=== PATIENT | male | born 1940 | race Caucasian/White ===

== ENCOUNTER 2019-03-07 12:01 | Emergency (ER) | payer MEDICARE ==
[2019-03-07] MEDS: HYDROmorphone 2 MG/ML SDV IM ONE ×2 (12:35→13:51)
[2019-03-07] MEDS ORDERED: HYDROmorphone 2 MG/ML SDV IM ONE (13:52)
--- NOTE | 2019-03-07 14:03 | ER ---
REASON FOR EMERGENCY ROOM VISIT: Suspected right hip fracture. HISTORY: This 78-year-old retired man who lives alone, fell off the steps while leaving his house, landing on his right hip, sustaining severe pain and obvious deformity of his right hip. He was brought in by ambulance after having his lower extremities immobilized with a vacuum splint. Complaining of pain in his upper thigh and right hip area. PAST MEDICAL HISTORY: Significant for 3 past operations for what sounds like peptic ulcer disease. The last one being approximately 40 years ago. Other than that, he has had no hospitalizations. MEDICATIONS: None. ALLERGIES: NONE TO MEDICATIONS. SOCIAL HISTORY: He is retired and lives alone. He has never been . He has no children. He is a smoker and drinks occasionally. He has 1 sister, who is and his mother and father are both from old age. REVIEW OF SYSTEMS: Pertinent positives and negatives as listed in the HPI. PHYSICAL EXAMINATION: GENERAL: A thin, alert, elderly gentleman, in no acute distress. He does have some pain in his right hip area. VITAL SIGNS: He is afebrile. Heart rate 74, blood pressure 146/55, respiratory rate 16, O2 sats 100% on room air. HEENT: No scleral icterus or are conjunctival injection. Oropharynx is normal. NECK: Supple and nontender. CHEST: Clear to auscultation. CARDIAC: Regular rate without murmur. ABDOMEN: Soft. EXTREMITIES: His right leg is foreshortened and externally rotated. The exam is somewhat limited by the application of the vacuum splint, but he did have some palpable swelling and tenderness overlying the greater trochanter area and the right hip. Distal pulses are intact (tibialis posterior). Sensation is intact distally and there is normal capillary refill. EMERGENCY ROOM COURSE: The splint was maintained to maintain immobilization. PA and lateral x-rays were obtained of his right hip area and it shows an acute intertrochanteric fracture of the right femur. With these findings in mind, I spoke with the orthopedic surgeon at [facility] in [place], Dr. Thomas, as well as the hospitalist, Dr. Cesar. They agreed with his plan that he should be transferred there. Dr. Thomas will tentatively plan surgery for the morning. They accepted him in transfer. I informed the patient and discussed options and he understands and agrees with this plan. He will be transferred by be a BLS ambulance to [place]. We did draw a CBC and BMP, the results of which are pending at the time of this dictation. DISCHARGE DIAGNOSIS: Right intertrochanteric hip fracture COOPER/MODJanett /[id number] MTDD
--- NOTE | 2019-03-08 10:13 | CR ---
Date of Service: 03/07/19 Clinical Angelo: trauma RIGHT FEMUR: There is a comminuted, impacted, intertrochanteric fracture on the right. No other acute abnormalities. [id number] [facility]
--- NOTE | 2019-03-08 10:15 | CR ---
Date of Service: 03/07/19 Clinical Data: trauma RIGHT HIP: No priors. There is an impacted, comminuted intertrochanteric fracture. No other acute abnormalities. [id number] [facility]
== END 2019-03-07 14:23 ==
LOC: LB.ED 12:01
DX: S72.141A Displaced intertrochanteric fracture of right femur, initial encounter for closed fracture (principal); F17.200 Nicotine dependence, unspecified, uncomplicated; W10.9XXA Fall (on) (from) unspecified stairs and steps, initial encounter
CPT/HCPCS: 36415; 73501; 73552; 80048; 85025; 96372; 99284; J1170; A0425; A0429

== ENCOUNTER 2019-03-11 14:36 | Inpatient (IN) | payer MEDICARE ==
[2019-03-12] MEDS ORDERED: Acetaminophen 325 MG Tab ONE (18:46)
[2019-03-12] MEDS ORDERED: Ondansetron 4 MG Tab.DIS ONE (18:47)
[2019-03-13] MEDS ORDERED: Acetaminophen 325 MG Tab ONE (08:21)
[2019-03-13] MEDS: Tuberculin, PPD 5 Units/0.1 ML 1 ML MDV IDERM ONE ×2 (08:37→19:55)
[2019-03-13] MEDS ORDERED: Ondansetron 4 MG Tab.DIS PO PRN (10:15)
[2019-03-13] MEDS: Enoxaparin 40 MG/0.4 ML Syringe SUBCUT SCH (10:26)
[2019-03-13] MEDS: Ferrous Sulfate 325 MG Tab PO SCH ×2 (10:27→20:08)
--- NOTE | 2019-03-13 11:37 | PCM.HP.2 ---
H&P History of Present Illness - General Date of Service: 03/12/19 Admit Problem/Dx: Admission Diagnosis/Problem Admission Diagnosis/Problem Weakness Source of Information: Patient History Limitations: Reports: No Limitations - History of Present Illness Initial Comments - Free Text/Narative: This is a 78yo M here for rehabilitation after post surgical repair of his right hip. He denies any concerns and feels that his pain is controlled. He does have increasing pain with movement. He denies any shortness of breath, no chest pain, no fever or chills. Location: Reports: Lower Extremity, Right Associated Symptoms: Reports: No Other Symptoms Right Leg Pain Score (Numeric/FACES): 3 - Related Data Allergies/Adverse Reactions: Allergies Allergy/AdvReac Type Severity Reaction Status Date / Time No Known Allergies Allergy Verified 03/07/19 13:32 Home Medications: Home Meds Acetaminophen 500 mg PO Q6H PRN 03/12/19 [History] Enoxaparin [Lovenox] 40 mg SUBCUT DAILY 03/12/19 [History] Ferrous Sulfate 325 mg PO BID 03/12/19 [History] Ondansetron [Zofran ODT] 4 mg PO Q8H PRN 03/12/19 [History] Polyethylene Glycol 3350 [Miralax] 17 gm PO DAILY PRN 03/12/19 [History] Sennosides/Docusate Sodium [Senna-Docusate Sodium Tablet] 1 each PO BID PRN [History] oxyCODONE 5 mg PO Q6H PRN 03/12/19 [History] Past Medical History - Past Health History Medical/Surgical History: Denies Medical/Surgical History Cardiovascular History: Reports: Other (See Below) Other Cardiovascular History: tachycardia Gastrointestinal History: Reports: None - Past Surgical History GI Surgical History: Reports: Other (See Below) Other GI Surgeries/Procedures: hx ulcer surgery Social & Family History - Tobacco Use Smoking Status *Q: Current Every Day Smoker Years of Tobacco use: 65 Packs/Tins Daily: 0.5 Used Tobacco, but Quit: No Month/Year Tobacco Last Used: 02/28 Second Hand Smoke Exposure: Yes - Caffeine Use Caffeine Use: Reports: Coffee, Tea - Recreational Drug Use Recreational Drug Use: No H&P Review of Systems - Review of Systems: Review Of Systems: ROS reveals no pertinent complaints other than HPI. Exam - Exam Exam: See Below - Vital Signs Vital Signs: Last Vital Signs Temp 37.3 C 03/13/19 01:17 Pulse 64 03/13/19 01:17 Resp 18 03/13/19 01:17 BP 163/57 H 03/13/19 01:17 Pulse Ox 97 03/13/19 01:17 Weight: 60.237 kg - Exam General: Alert, Oriented, Cooperative HEENT: PERRLA, Conjunctiva Clear, EACs Clear, EOMI Neck: Supple, Trachea Midline Lungs: Clear to Auscultation, Normal Respiratory Effort Cardiovascular: Regular Rate, Regular Rhythm GI/Abdominal Exam: Normal Bowel Sounds, Soft, Non-Tender Back Exam: Normal Inspection Extremities: Normal Inspection, Normal Range of Motion Peripheral Pulses: 2+: Dorsalis Pedis (L), Dorsalis Pedis (R) Skin: Warm, Dry, Intact - Patient Data Yo Results Last 24 hrs: Microbiology 03/12/19 17:20 MRSA Surveillance Culture - Final Nares, Right NO MRSA ISOLATED - Problem List (1) Status post hip surgery SNOMED Code(s): 298211884, [id number] ICD Code: Z98.890 - OTHER SPECIFIED POSTPROCEDURAL STATES Status: Acute Priority: High Current Visit: Yes Problem List Initiated/Reviewed/Updated: Yes Orders Last 24hrs: Active Orders 24 hr Category Date Time Status Patient Status [ADT] Routine ADT 03/12/19 15:48 Active Consult to Sales Service Professional [CONS] Routine Cons 03/12/19 15:48 Active Consult to Home Health [CONS] Routine Cons 03/12/19 15:48 Active Consult to Infection Prevention [CONS] Routine Cons 03/12/19 15:48 Active Consult to Wound Care Services [CONS] Routine Cons 03/12/19 15:48 Active OT Evaluation and Treatment [CONS] Routine Cons 03/12/19 15:48 Active PT Evaluation and Treatment [CONS] Routine Cons 03/12/19 15:48 Active Regular Diet [DIET] Diet 03/13/19 Breakfast Ordered Acetaminophen [Tylenol Extra Strength] Med 03/13/19 10:13 Active 500 mg PO Q6H PRN Docusate Sodium/Sennosides [Senna Plus] Med 03/13/19 10:16 Active 1 tab PO BID PRN Enoxaparin [Lovenox] Med 03/13/19 08:00 Active 40 mg SUBCUT DAILY Ferrous Sulfate Med 03/13/19 08:00 Active 325 mg PO BID Ondansetron [Zofran ODT] Med 03/13/19 10:15 Active 4 mg PO Q8H PRN Medication Orders Acetaminophen (Tylenol Extra Strength) 500 mg PO Q6H PRN PRN Reason: MILD PAIN Enoxaparin Sodium (Lovenox) 40 mg SUBCUT DAILY [facility] Stop: 04/05/19 23:59 Last Admin: 03/13/19 10:26 Dose: 40 mg Ferrous Sulfate (Ferrous Sulfate) 325 mg PO BID [facility] Last Admin: 03/13/19 10:27 Dose: 325 mg Ondansetron HCl (Zofran Odt) 4 mg PO Q8H PRN PRN Reason: NAUSEA AND VOMITING Senna/Docusate Sodium (Senna Plus) 1 tab PO BID PRN PRN Reason: CONSTIPATION Assessment/Plan Comment:: Patient admitted for swing bed rehabilitation of the right hip. Patient appears to be healing well and has no issues or concerns. We will continue with PT/OT and pain control as needed. - Mortality Measure Prognosis:: Good
[2019-03-13] MEDS: Acetaminophen 500 MG Tab PO PRN (20:13)
[2019-03-14] MEDS: Acetaminophen 500 MG Tab PO PRN ×3 (04:49→20:03)
[2019-03-14] MEDS: Ferrous Sulfate 325 MG Tab PO SCH ×2 (09:51→20:03)
[2019-03-14] MEDS: Enoxaparin 40 MG/0.4 ML Syringe SUBCUT SCH (09:51)
[2019-03-15] MEDS: Ferrous Sulfate 325 MG Tab PO SCH ×2 (08:05→20:16)
[2019-03-15] MEDS: Enoxaparin 40 MG/0.4 ML Syringe SUBCUT SCH (08:06)
[2019-03-15] MEDS: Acetaminophen 500 MG Tab PO PRN ×2 (12:53→22:01)
[2019-03-16] MEDS: Enoxaparin 40 MG/0.4 ML Syringe SUBCUT SCH (08:23)
[2019-03-16] MEDS: Ferrous Sulfate 325 MG Tab PO SCH ×2 (08:23→19:54)
[2019-03-17] MEDS: Ferrous Sulfate 325 MG Tab PO SCH ×2 (07:40→20:00)
[2019-03-17] MEDS: Enoxaparin 40 MG/0.4 ML Syringe SUBCUT SCH (07:40)
[2019-03-17] MEDS: Acetaminophen 500 MG Tab PO PRN (07:42)
[2019-03-18] MEDS: Acetaminophen 500 MG Tab PO PRN ×2 (05:42→19:32)
[2019-03-18] MEDS: Enoxaparin 40 MG/0.4 ML Syringe SUBCUT SCH (08:21)
[2019-03-18] MEDS: Ferrous Sulfate 325 MG Tab PO SCH ×2 (08:21→19:32)
--- NOTE | 2019-03-18 08:41 | PCM.PN ---
- General Info Date of Service: 03/18/19 Functional Status: Reports: Pain Controlled, Tolerating Diet, Ambulating - Review of Systems General: Reports: No Symptoms HEENT: Reports: No Symptoms Pulmonary: Reports: No Symptoms Cardiovascular: Reports: No Symptoms Gastrointestinal: Reports: No Symptoms Genitourinary: Reports: No Symptoms Musculoskeletal: Reports: Leg Pain, Joint Pain Skin: Reports: No Symptoms Neurological: Reports: Weakness - Patient Data Vitals - Most Recent: Last Vital Signs Temp 36.4 C 03/17/19 07:55 Pulse 70 03/17/19 07:55 Resp 16 03/17/19 07:55 BP 127/59 L 03/17/19 07:55 Pulse Ox 99 03/17/19 07:55 Weight - Most Recent: 56.79 kg Med Orders - Current: Current Medications Acetaminophen (Tylenol Extra Strength) 500 mg PO Q6H PRN PRN Reason: MILD PAIN Last Admin: 03/18/19 05:42 Dose: 500 mg Enoxaparin Sodium (Lovenox) 40 mg SUBCUT DAILY [facility] Stop: 04/05/19 23:59 Last Admin: 03/18/19 08:21 Dose: 40 mg Ferrous Sulfate (Ferrous Sulfate) 325 mg PO BID [facility] Last Admin: 03/18/19 08:21 Dose: 325 mg Ondansetron HCl (Zofran Odt) 4 mg PO Q8H PRN PRN Reason: NAUSEA AND VOMITING Senna/Docusate Sodium (Senna Plus) 1 tab PO BID PRN PRN Reason: CONSTIPATION Discontinued Medications Acetaminophen (Tylenol) Confirm Administered Dose 650 mg .ROUTE .STK-MED ONE Stop: 03/12/19 18:47 Last Admin: 03/12/19 18:45 Dose: 650 mg Acetaminophen (Tylenol) Confirm Administered Dose 650 mg .ROUTE .STK-MED ONE Stop: 03/13/19 08:22 Last Admin: 03/13/19 08:20 Dose: 650 mg Ondansetron HCl (Zofran Odt) Confirm Administered Dose 4 mg .ROUTE .STK-MED ONE Stop: 03/12/19 18:48 Last Admin: 03/12/19 18:45 Dose: 4 mg Tuberculin PPD (Aplisol) 5 unit IDERM ONETIME ONE Stop: 03/12/19 15:49 Last Admin: 03/13/19 19:55 Dose: Not Given - Exam General: Alert, Oriented, Cooperative HEENT: Pupils Equal, Pupils Reactive, EOMI Neck: Supple Lungs: Clear to Auscultation, Normal Respiratory Effort Cardiovascular: Regular Rate, Regular Rhythm GI/Abdominal Exam: Normal Bowel Sounds Back Exam: Normal Inspection Extremities: Normal Inspection - Problem List & Annotations (1) Status post hip surgery SNOMED Code(s): 472425571, [id number] Code(s): Z98.890 - OTHER SPECIFIED POSTPROCEDURAL STATES Status: Acute Priority: High Current Visit: Yes - Problem List Review Problem List Initiated/Reviewed/Updated: Yes - Plan Plan:: Patient admitted for swing bed rehabilitation of the right hip. Patient appears to be healing well and has no issues or concerns. We will continue with PT/OT and pain control as needed. 03/18/19 Patient doing well. He has some pain with movement of the hip but improving with PT/OT. He denies any concerns and happy with his progress. Continue current management and f/u.
[2019-03-19] MEDS: Enoxaparin 40 MG/0.4 ML Syringe SUBCUT SCH (08:14)
[2019-03-19] MEDS: Ferrous Sulfate 325 MG Tab PO SCH ×2 (08:15→19:56)
[2019-03-19] MEDS: Acetaminophen 500 MG Tab PO PRN (12:01)
[2019-03-20] MEDS: Acetaminophen 500 MG Tab PO PRN ×2 (03:15→19:34)
[2019-03-20] MEDS: Enoxaparin 40 MG/0.4 ML Syringe SUBCUT SCH (07:34)
[2019-03-20] MEDS: Ferrous Sulfate 325 MG Tab PO SCH ×2 (07:34→19:34)
[2019-03-21] MEDS: Acetaminophen 500 MG Tab PO PRN ×2 (03:13→23:59)
[2019-03-21] MEDS: Enoxaparin 40 MG/0.4 ML Syringe SUBCUT SCH (07:17)
[2019-03-21] MEDS: Ferrous Sulfate 325 MG Tab PO SCH ×2 (07:17→20:07)
--- NOTE | 2019-03-21 12:47 | CR ---
DATE OF SERVICE: 03/20/2019 CLINICAL DATA: History R hip surgery. RIGHT HIP: Comparison is made to a prior exam dated 03/07/2019. The comminuted intertrochanteric fracture has been fixed internally with a compression screw and intramedullary mariel. No new abnormalities. [id number] [facility]
[2019-03-22] MEDS: Ferrous Sulfate 325 MG Tab PO SCH ×2 (08:00→21:02)
[2019-03-22] MEDS: Enoxaparin 40 MG/0.4 ML Syringe SUBCUT SCH (08:00)
[2019-03-22] MEDS: traMADol 50 MG Tab PO PRN ×2 (13:20→21:02)
[2019-03-23] MEDS: traMADol 50 MG Tab PO PRN (07:19)
[2019-03-23] MEDS: Ferrous Sulfate 325 MG Tab PO SCH ×2 (07:19→19:46)
[2019-03-23] MEDS: Enoxaparin 40 MG/0.4 ML Syringe SUBCUT SCH (07:19)
[2019-03-23] MEDS: Ibuprofen 600 MG Tab PO PRN (19:46)
[2019-03-24] MEDS: Ibuprofen 600 MG Tab PO PRN (07:23)
[2019-03-24] MEDS: Enoxaparin 40 MG/0.4 ML Syringe SUBCUT SCH (07:23)
[2019-03-24] MEDS: Ferrous Sulfate 325 MG Tab PO SCH (07:27)
== END 2019-03-24 10:45 | disposition home or self-care (01) | DRG 561 ==
LOC: LB.MS 03-12 15:11 → UNDOADMIN 03-12 15:11 → LB.MS 03-12 15:48
PROVIDERS: ADMIT Family Medicine; ATTEND Family Medicine
DX: S72.001D Fracture of unspecified part of neck of right femur, subsequent encounter for closed fracture with routine healing (principal); F17.200 Nicotine dependence, unspecified, uncomplicated; Z79.899 Other long term (current) drug therapy
CPT/HCPCS: 36415; 73502-RT; 85025; 86580; 97110-GP; 97116-GP; 97161-GP; 97165-GO; 97530-GP; 97535-GO; A9270-GY; J1650

== ENCOUNTER 2022-06-13 21:07 | Emergency (ER) | payer MEDICARE, SELFPAY ==
[2022-06-13] MEDS ORDERED: Morphine 2 MG/ML SYRINGE IVPUSH PRN (22:57)
[2022-06-14] MEDS: Morphine 4 MG/ML VIAL IVPUSH PRN ×4 (00:40→13:12)
[2022-06-14] MEDS ORDERED: Sodium Chloride 0.9% 1,000 ML IV SCH (08:15)
== END 2022-06-14 13:12 ==
LOC: LB.ED 21:07
DX: S72.002A Fracture of unspecified part of neck of left femur, initial encounter for closed fracture (principal); W01.0XXA Fall on same level from slipping, tripping and stumbling without subsequent striking against object, initial encounter; Y92.009 Unspecified place in unspecified non-institutional (private) residence as the place of occurrence of the external cause
CPT/HCPCS: 36415; 73501-LT; 73552-LT; 80048; 85027; 96361; 96374; 96376; 99285; 99285-25; A0425; A0429; J2270; J7030; U0002

== ENCOUNTER 2022-06-20 14:57 | Inpatient (IN) | payer MEDICARE ==
[2022-06-20] MEDS ORDERED: oxyCODONE 5 MG Tab PO PRN (15:11)
[2022-06-20] MEDS ORDERED: Tuberculin, PPD 5 Units/0.1 ML 1 ML MDV IDERM ONE (18:21)
[2022-06-20] MEDS ORDERED: Ketorolac 60 MG/2 ML SDV ONE (19:41)
[2022-06-20] MEDS: Acetaminophen 650 MG Tab.ER PO PRN (22:32)
[2022-06-21] MEDS: Nicotine 21 MG/24 Hr Patch TRDERM SCH (08:01)
[2022-06-21] MEDS: Cyanocobalamin (Vitamin B12) 1,000 MCG Tab PO SCH (08:02)
[2022-06-21] MEDS: Ferrous Sulfate 325 MG Tab PO SCH (08:02)
[2022-06-21] MEDS: Pantoprazole 40 MG Tab.CR PO SCH (08:02)
[2022-06-21] MEDS: Ascorbic Acid 500 MG Tab PO SCH (08:04)
[2022-06-21] MEDS: Enoxaparin 40 MG/0.4 ML Syringe SUBCUT SCH (08:04)
[2022-06-22] MEDS ORDERED: Zinc Oxide 20% Oint 56.7 GM Tube TOP PRN (01:08)
[2022-06-22] MEDS: Enoxaparin 40 MG/0.4 ML Syringe SUBCUT SCH (07:39)
[2022-06-22] MEDS: Ascorbic Acid 500 MG Tab PO SCH (07:40)
[2022-06-22] MEDS: Ferrous Sulfate 325 MG Tab PO SCH (07:40)
[2022-06-22] MEDS: Cyanocobalamin (Vitamin B12) 1,000 MCG Tab PO SCH (07:40)
[2022-06-22] MEDS: Pantoprazole 40 MG Tab.CR PO SCH (07:40)
[2022-06-22] MEDS: Nicotine 21 MG/24 Hr Patch TRDERM SCH (07:41)
[2022-06-22] MEDS: Acetaminophen 650 MG Tab.ER PO PRN ×2 (09:06→20:00)
[2022-06-22] MEDS: Nystatin Crm 30 GM Tube TOP SCH ×2 (11:55→19:59)
[2022-06-22] MEDS ORDERED: Nystatin Crm 30 GM Tube ONE (14:19)
[2022-06-23] MEDS: Acetaminophen 650 MG Tab.ER PO PRN (03:13)
[2022-06-23] MEDS: Ferrous Sulfate 325 MG Tab PO SCH (07:56)
[2022-06-23] MEDS: Nicotine 21 MG/24 Hr Patch TRDERM SCH (07:57)
[2022-06-23] MEDS: Enoxaparin 40 MG/0.4 ML Syringe SUBCUT SCH (07:58)
[2022-06-23] MEDS: Pantoprazole 40 MG Tab.CR PO SCH (07:59)
[2022-06-23] MEDS: Cyanocobalamin (Vitamin B12) 1,000 MCG Tab PO SCH (07:59)
[2022-06-23] MEDS: Ascorbic Acid 500 MG Tab PO SCH (08:00)
[2022-06-23] MEDS: Nystatin Crm 30 GM Tube TOP SCH ×2 (08:04→20:06)
[2022-06-24] MEDS ORDERED: Pantoprazole 40 MG Tab.CR ONE (07:52)
[2022-06-24] MEDS: Ascorbic Acid 500 MG Tab PO SCH (10:09)
[2022-06-24] MEDS: Cyanocobalamin (Vitamin B12) 1,000 MCG Tab PO SCH (10:09)
[2022-06-24] MEDS: Pantoprazole 40 MG Tab.CR PO SCH (10:10)
[2022-06-24] MEDS: Ferrous Sulfate 325 MG Tab PO SCH (10:10)
[2022-06-24] MEDS: Enoxaparin 40 MG/0.4 ML Syringe SUBCUT SCH (10:10)
[2022-06-24] MEDS: Nicotine 21 MG/24 Hr Patch TRDERM SCH (10:11)
[2022-06-24] MEDS: Nystatin Crm 30 GM Tube TOP SCH ×2 (10:12→20:21)
[2022-06-25] MEDS: Acetaminophen 650 MG Tab.ER PO PRN ×3 (05:03→20:26)
[2022-06-25] MEDS: Nicotine 21 MG/24 Hr Patch TRDERM SCH (08:11)
[2022-06-25] MEDS: Ferrous Sulfate 325 MG Tab PO SCH (08:13)
[2022-06-25] MEDS: Cyanocobalamin (Vitamin B12) 1,000 MCG Tab PO SCH (08:13)
[2022-06-25] MEDS: Ascorbic Acid 500 MG Tab PO SCH (08:13)
[2022-06-25] MEDS: Enoxaparin 40 MG/0.4 ML Syringe SUBCUT SCH (08:13)
[2022-06-25] MEDS: Pantoprazole 40 MG Tab.CR PO SCH (08:13)
[2022-06-25] MEDS: Nystatin Crm 30 GM Tube TOP SCH ×2 (08:13→20:18)
[2022-06-26] MEDS: Nicotine 21 MG/24 Hr Patch TRDERM SCH (07:59)
[2022-06-26] MEDS: Nystatin Crm 30 GM Tube TOP SCH ×2 (08:00→20:55)
[2022-06-26] MEDS: Enoxaparin 40 MG/0.4 ML Syringe SUBCUT SCH (08:00)
[2022-06-26] MEDS: Ascorbic Acid 500 MG Tab PO SCH (08:00)
[2022-06-26] MEDS: Cyanocobalamin (Vitamin B12) 1,000 MCG Tab PO SCH (08:00)
[2022-06-26] MEDS: Ferrous Sulfate 325 MG Tab PO SCH (08:00)
[2022-06-26] MEDS: Pantoprazole 40 MG Tab.CR PO SCH (08:00)
[2022-06-27] MEDS: Nystatin Crm 30 GM Tube TOP SCH ×2 (07:39→19:48)
[2022-06-27] MEDS: Cyanocobalamin (Vitamin B12) 1,000 MCG Tab PO SCH (07:40)
[2022-06-27] MEDS: Enoxaparin 40 MG/0.4 ML Syringe SUBCUT SCH (07:40)
[2022-06-27] MEDS: Ferrous Sulfate 325 MG Tab PO SCH (07:40)
[2022-06-27] MEDS: Acetaminophen 650 MG Tab.ER PO PRN ×2 (07:40→13:53)
[2022-06-27] MEDS: Ascorbic Acid 500 MG Tab PO SCH (07:40)
[2022-06-27] MEDS: Pantoprazole 40 MG Tab.CR PO SCH (07:40)
[2022-06-27] MEDS: Nicotine 21 MG/24 Hr Patch TRDERM SCH (07:40)
[2022-06-27] MEDS: Calcium Carbonate 500 MG Tab.Chew PO PRN (19:48)
[2022-06-28] MEDS: Cyanocobalamin (Vitamin B12) 1,000 MCG Tab PO SCH (08:11)
[2022-06-28] MEDS: Pantoprazole 40 MG Tab.CR PO SCH (08:11)
[2022-06-28] MEDS: Ferrous Sulfate 325 MG Tab PO SCH (08:11)
[2022-06-28] MEDS: Ascorbic Acid 500 MG Tab PO SCH (08:11)
[2022-06-28] MEDS: Nicotine 21 MG/24 Hr Patch TRDERM SCH (08:12)
[2022-06-28] MEDS: Nystatin Crm 30 GM Tube TOP SCH ×2 (08:14→21:06)
[2022-06-28] MEDS: Enoxaparin 40 MG/0.4 ML Syringe SUBCUT SCH (08:15)
[2022-06-28] MEDS: Acetaminophen 650 MG Tab.ER PO PRN (11:17)
[2022-06-28] MEDS: traMADol 50 MG Tab PO PRN ×2 (14:45→23:20)
[2022-06-29] MEDS: traMADol 50 MG Tab PO PRN ×2 (08:17→13:55)
[2022-06-29] MEDS: Pantoprazole 40 MG Tab.CR PO SCH (08:17)
[2022-06-29] MEDS: Nystatin Crm 30 GM Tube TOP SCH ×2 (08:18→20:05)
[2022-06-29] MEDS: Ascorbic Acid 500 MG Tab PO SCH (08:19)
[2022-06-29] MEDS: Enoxaparin 40 MG/0.4 ML Syringe SUBCUT SCH (08:19)
[2022-06-29] MEDS: Nicotine 21 MG/24 Hr Patch TRDERM SCH (08:20)
[2022-06-29] MEDS: Cyanocobalamin (Vitamin B12) 1,000 MCG Tab PO SCH (08:21)
[2022-06-29] MEDS: Ferrous Sulfate 325 MG Tab PO SCH (08:21)
[2022-06-29] MEDS: Polyethylene Glycol 3350 Powder 17 GM Packet PO SCH ×2 (10:00→20:05)
[2022-06-30] MEDS: traMADol 50 MG Tab PO PRN (07:25)
[2022-06-30] MEDS: Polyethylene Glycol 3350 Powder 17 GM Packet PO SCH ×2 (07:25→21:45)
[2022-06-30] MEDS: Enoxaparin 40 MG/0.4 ML Syringe SUBCUT SCH (07:26)
[2022-06-30] MEDS: Nicotine 21 MG/24 Hr Patch TRDERM SCH (07:26)
[2022-06-30] MEDS: Cyanocobalamin (Vitamin B12) 1,000 MCG Tab PO SCH (07:27)
[2022-06-30] MEDS: Nystatin Crm 30 GM Tube TOP SCH ×2 (07:27→21:45)
[2022-06-30] MEDS: Ferrous Sulfate 325 MG Tab PO SCH (07:27)
[2022-06-30] MEDS: Ascorbic Acid 500 MG Tab PO SCH (07:27)
[2022-06-30] MEDS: Pantoprazole 40 MG Tab.CR PO SCH (07:27)
[2022-07-01] MEDS: traMADol 50 MG Tab PO PRN (03:31)
[2022-07-01] MEDS: Ascorbic Acid 500 MG Tab PO SCH (07:30)
[2022-07-01] MEDS: Polyethylene Glycol 3350 Powder 17 GM Packet PO SCH (07:30)
[2022-07-01] MEDS: Nystatin Crm 30 GM Tube TOP SCH ×2 (07:30→19:54)
[2022-07-01] MEDS: Nicotine 21 MG/24 Hr Patch TRDERM SCH (07:30)
[2022-07-01] MEDS: Ferrous Sulfate 325 MG Tab PO SCH (07:30)
[2022-07-01] MEDS: Enoxaparin 40 MG/0.4 ML Syringe SUBCUT SCH (07:30)
[2022-07-01] MEDS: Pantoprazole 40 MG Tab.CR PO SCH (07:30)
[2022-07-01] MEDS: Cyanocobalamin (Vitamin B12) 1,000 MCG Tab PO SCH (07:30)
[2022-07-01] MEDS ORDERED: Polyethylene Glycol 3350 Powder 17 GM Packet PO PRN (07:38)
[2022-07-01] MEDS: Acetaminophen 650 MG Tab.ER PO PRN (19:54)
[2022-07-02] MEDS: Nystatin Crm 30 GM Tube TOP SCH ×2 (07:26→19:27)
[2022-07-02] MEDS: Ascorbic Acid 500 MG Tab PO SCH (07:27)
[2022-07-02] MEDS: Pantoprazole 40 MG Tab.CR PO SCH (07:27)
[2022-07-02] MEDS: Cyanocobalamin (Vitamin B12) 1,000 MCG Tab PO SCH (07:27)
[2022-07-02] MEDS: Ferrous Sulfate 325 MG Tab PO SCH (07:27)
[2022-07-02] MEDS: Enoxaparin 40 MG/0.4 ML Syringe SUBCUT SCH (07:27)
[2022-07-02] MEDS: Acetaminophen 650 MG Tab.ER PO PRN (07:32)
[2022-07-02] MEDS: Nicotine 21 MG/24 Hr Patch TRDERM SCH (07:36)
[2022-07-03] MEDS: Cyanocobalamin (Vitamin B12) 1,000 MCG Tab PO SCH (08:01)
[2022-07-03] MEDS: Nicotine 21 MG/24 Hr Patch TRDERM SCH (08:01)
[2022-07-03] MEDS: Pantoprazole 40 MG Tab.CR PO SCH (08:01)
[2022-07-03] MEDS: Ferrous Sulfate 325 MG Tab PO SCH (08:01)
[2022-07-03] MEDS: Ascorbic Acid 500 MG Tab PO SCH (08:01)
[2022-07-03] MEDS: Enoxaparin 40 MG/0.4 ML Syringe SUBCUT SCH (08:01)
[2022-07-03] MEDS: Nystatin Crm 30 GM Tube TOP SCH ×2 (08:04→19:30)
[2022-07-03] MEDS: traMADol 50 MG Tab PO PRN (10:21)
[2022-07-04] MEDS: Nicotine 21 MG/24 Hr Patch TRDERM SCH (07:59)
[2022-07-04] MEDS: Nystatin Crm 30 GM Tube TOP SCH ×2 (08:00→19:30)
[2022-07-04] MEDS: Enoxaparin 40 MG/0.4 ML Syringe SUBCUT SCH (08:00)
[2022-07-04] MEDS: Ascorbic Acid 500 MG Tab PO SCH (08:01)
[2022-07-04] MEDS: Cyanocobalamin (Vitamin B12) 1,000 MCG Tab PO SCH (08:01)
[2022-07-04] MEDS: Ferrous Sulfate 325 MG Tab PO SCH (08:01)
[2022-07-04] MEDS: Pantoprazole 40 MG Tab.CR PO SCH (08:01)
[2022-07-04] MEDS: traMADol 50 MG Tab PO PRN (08:36)
[2022-07-04] MEDS: Calcium Carbonate 500 MG Tab.Chew PO PRN (15:50)
[2022-07-05] MEDS: Calcium Carbonate 500 MG Tab.Chew PO PRN (02:29)
[2022-07-05] MEDS: Nicotine 21 MG/24 Hr Patch TRDERM SCH (07:53)
[2022-07-05] MEDS: Ascorbic Acid 500 MG Tab PO SCH (07:54)
[2022-07-05] MEDS: Pantoprazole 40 MG Tab.CR PO SCH (07:54)
[2022-07-05] MEDS: Cyanocobalamin (Vitamin B12) 1,000 MCG Tab PO SCH (07:54)
[2022-07-05] MEDS: Enoxaparin 40 MG/0.4 ML Syringe SUBCUT SCH (07:54)
[2022-07-05] MEDS: Ferrous Sulfate 325 MG Tab PO SCH (07:54)
[2022-07-05] MEDS: Nystatin Crm 30 GM Tube TOP SCH ×2 (07:56→19:58)
[2022-07-05] MEDS: traMADol 50 MG Tab PO PRN (08:28)
[2022-07-05] MEDS: Gabapentin 100 MG Cap PO SCH ×2 (09:53→20:01)
[2022-07-06] MEDS: Enoxaparin 40 MG/0.4 ML Syringe SUBCUT SCH (07:42)
[2022-07-06] MEDS: Nicotine 21 MG/24 Hr Patch TRDERM SCH (07:42)
[2022-07-06] MEDS: Cyanocobalamin (Vitamin B12) 1,000 MCG Tab PO SCH (07:43)
[2022-07-06] MEDS: Ferrous Sulfate 325 MG Tab PO SCH (07:43)
[2022-07-06] MEDS: Pantoprazole 40 MG Tab.CR PO SCH (07:43)
[2022-07-06] MEDS: traMADol 50 MG Tab PO PRN (07:43)
[2022-07-06] MEDS: Nystatin Crm 30 GM Tube TOP SCH ×2 (07:43→19:47)
[2022-07-06] MEDS: Gabapentin 100 MG Cap PO SCH ×2 (07:43→19:47)
[2022-07-06] MEDS: Ascorbic Acid 500 MG Tab PO SCH (07:43)
[2022-07-07] MEDS: Cyanocobalamin (Vitamin B12) 1,000 MCG Tab PO SCH (08:12)
[2022-07-07] MEDS: Ferrous Sulfate 325 MG Tab PO SCH (08:12)
[2022-07-07] MEDS: Nicotine 21 MG/24 Hr Patch TRDERM SCH (08:12)
[2022-07-07] MEDS: Gabapentin 100 MG Cap PO SCH ×2 (08:12→19:32)
[2022-07-07] MEDS: Nystatin Crm 30 GM Tube TOP SCH ×2 (08:12→19:32)
[2022-07-07] MEDS: Pantoprazole 40 MG Tab.CR PO SCH (08:12)
[2022-07-07] MEDS: Enoxaparin 40 MG/0.4 ML Syringe SUBCUT SCH (08:12)
[2022-07-07] MEDS: Ascorbic Acid 500 MG Tab PO SCH (08:12)
[2022-07-08] MEDS: traMADol 50 MG Tab PO PRN (06:23)
[2022-07-08] MEDS: Ferrous Sulfate 325 MG Tab PO SCH (07:17)
[2022-07-08] MEDS: Gabapentin 100 MG Cap PO SCH ×2 (07:17→20:07)
[2022-07-08] MEDS: Pantoprazole 40 MG Tab.CR PO SCH (07:17)
[2022-07-08] MEDS: Cyanocobalamin (Vitamin B12) 1,000 MCG Tab PO SCH (07:17)
[2022-07-08] MEDS: Ascorbic Acid 500 MG Tab PO SCH (07:17)
[2022-07-08] MEDS: Nicotine 21 MG/24 Hr Patch TRDERM SCH (07:18)
[2022-07-08] MEDS: Enoxaparin 40 MG/0.4 ML Syringe SUBCUT SCH (07:18)
[2022-07-09] MEDS: Cyanocobalamin (Vitamin B12) 1,000 MCG Tab PO SCH (07:36)
[2022-07-09] MEDS: Pantoprazole 40 MG Tab.CR PO SCH (07:36)
[2022-07-09] MEDS: Enoxaparin 40 MG/0.4 ML Syringe SUBCUT SCH (07:36)
[2022-07-09] MEDS: Nicotine 21 MG/24 Hr Patch TRDERM SCH (07:36)
[2022-07-09] MEDS: Ascorbic Acid 500 MG Tab PO SCH (07:36)
[2022-07-09] MEDS: Ferrous Sulfate 325 MG Tab PO SCH (07:36)
[2022-07-09] MEDS: Gabapentin 100 MG Cap PO SCH ×2 (07:36→19:38)
[2022-07-09] MEDS: traMADol 50 MG Tab PO PRN (07:38)
[2022-07-10] MEDS: Calcium Carbonate 500 MG Tab.Chew PO PRN (02:08)
[2022-07-10] MEDS: Cyanocobalamin (Vitamin B12) 1,000 MCG Tab PO SCH (07:40)
[2022-07-10] MEDS: Ascorbic Acid 500 MG Tab PO SCH (07:40)
[2022-07-10] MEDS: Gabapentin 100 MG Cap PO SCH ×2 (07:41→19:25)
[2022-07-10] MEDS: Pantoprazole 40 MG Tab.CR PO SCH (07:41)
[2022-07-10] MEDS: Nicotine 21 MG/24 Hr Patch TRDERM SCH (07:41)
[2022-07-10] MEDS: Enoxaparin 40 MG/0.4 ML Syringe SUBCUT SCH (07:41)
[2022-07-10] MEDS: Ferrous Sulfate 325 MG Tab PO SCH (07:41)
[2022-07-11] MEDS: Nicotine 21 MG/24 Hr Patch TRDERM SCH (07:13)
[2022-07-11] MEDS: Enoxaparin 40 MG/0.4 ML Syringe SUBCUT SCH (07:13)
[2022-07-11] MEDS: Gabapentin 100 MG Cap PO SCH ×2 (07:14→19:23)
[2022-07-11] MEDS: Acetaminophen 650 MG Tab.ER PO PRN (07:14)
[2022-07-11] MEDS: Ascorbic Acid 500 MG Tab PO SCH (07:14)
[2022-07-11] MEDS: Pantoprazole 40 MG Tab.CR PO SCH (07:14)
[2022-07-11] MEDS: Ferrous Sulfate 325 MG Tab PO SCH (07:15)
[2022-07-11] MEDS: Cyanocobalamin (Vitamin B12) 1,000 MCG Tab PO SCH (07:15)
[2022-07-11] MEDS: traMADol 50 MG Tab PO PRN (10:52)
[2022-07-12] MEDS: Nicotine 21 MG/24 Hr Patch TRDERM SCH (07:36)
[2022-07-12] MEDS: Enoxaparin 40 MG/0.4 ML Syringe SUBCUT SCH (07:37)
[2022-07-12] MEDS: Cyanocobalamin (Vitamin B12) 1,000 MCG Tab PO SCH (07:37)
[2022-07-12] MEDS: Ferrous Sulfate 325 MG Tab PO SCH (07:37)
[2022-07-12] MEDS: Ascorbic Acid 500 MG Tab PO SCH (07:37)
[2022-07-12] MEDS: Gabapentin 100 MG Cap PO SCH ×2 (07:37→20:24)
[2022-07-12] MEDS: Pantoprazole 40 MG Tab.CR PO SCH (07:37)
[2022-07-13] MEDS: Nicotine 21 MG/24 Hr Patch TRDERM SCH (07:35)
[2022-07-13] MEDS: Ascorbic Acid 500 MG Tab PO SCH (07:36)
[2022-07-13] MEDS: Pantoprazole 40 MG Tab.CR PO SCH (07:36)
[2022-07-13] MEDS: Acetaminophen 650 MG Tab.ER PO PRN (07:36)
[2022-07-13] MEDS: Gabapentin 100 MG Cap PO SCH (07:36)
[2022-07-13] MEDS: Enoxaparin 40 MG/0.4 ML Syringe SUBCUT SCH (07:36)
[2022-07-13] MEDS: Ferrous Sulfate 325 MG Tab PO SCH (07:36)
[2022-07-13] MEDS: Cyanocobalamin (Vitamin B12) 1,000 MCG Tab PO SCH (07:36)
[2022-07-13 07:42] VITALS: BP 144/65; PULSE 62
== END 2022-07-13 09:57 | disposition home or self-care (01) | DRG 948 ==
LOC: LB.MS 18:44
PROVIDERS: ADMIT Surgery; ATTEND Surgery
DX: R53.81 Other malaise (principal); S72.142D Displaced intertrochanteric fracture of left femur, subsequent encounter for closed fracture with routine healing; D50.0 Iron deficiency anemia secondary to blood loss (chronic); F17.200 Nicotine dependence, unspecified, uncomplicated; Z79.899 Other long term (current) drug therapy
CPT/HCPCS: 36415; 73502-LT; 80053; 83735; 85018; 85025; 86580; 92526-GN; 92610-GN; 93971-LT; 97110-GP; 97116-GP; 97161-GP; 97165-GO; 97530-GO; 97530-GP; 97535-GO; A9270-GY; J1650

== ENCOUNTER 2024-05-11 21:25 | Inpatient (IN) | payer MEDICARE, OTHER ==
[2024-05-11] MEDS ORDERED: Sodium Chloride 0.9% 10 ML Syringe FLUSH PRN (21:35)
[2024-05-11] MEDS: Lactated Ringers 1,000 ML IV ONE (21:55)
[2024-05-11] MEDS ORDERED: Dextrose 5%-0.9% NaCl 1,000 ML IV SCH (22:00)
[2024-05-11] MEDS: Sodium Chloride 0.9% 1,000 ML IV ONE (22:03)
[2024-05-11 22:18] LABS: BASOPHILS ABSOLUTE AUTO 0.01 K/uL (0.02-0.10); BASOPHILS PERCENT AUTO 0.2 % (0.0-0.5); EOSINOPHILS ABSOLUTE AUTO 0.01 K/uL (0.04-0.40); EOSINOPHILS PERCENT AUTO 0.2 % (1.0-5.0); HEMATOCRIT 49.7 % (40.0-54.0); HEMOGLOBIN 16.1 g/dL (13.0-18.0); LYMPHOCYTES ABSOLUTE AUTO 0.35 K/uL (1.50-4.00); LYMPHOCYTES PERCENT AUTO 8.3 % (20.0-40.0); MEAN CORPUSCULAR HEMOGLOBIN 33.5 pg (27.0-32.0); MEAN CORPUSCULAR HGB CONC 32.4 g/dL (31.0-35.0); MEAN CORPUSCULAR VOLUME 103 fL (76-96); MEAN PLATELET VOLUME 12.8 fL (6.0-10.0); MONOCYTES ABSOLUTE AUTO 0.53 K/uL (0.20-0.80); MONOCYTES PERCENT AUTO 12.5 % (3.0-10.0); NEUTROPHILS ABSOLUTE AUTO 3.34 K/uL (2.00-7.50); NEUTROPHILS PERCENT AUTO 78.8 % (45.0-70.0); PLATELET COUNT,PLT 99 K/uL (150-400); RED BLOOD CELL COUNT 4.81 M/uL (4.50-6.50); RED CELL DISTRIBUTION WIDTH 14.9 % (11.0-16.0); WHITE BLOOD CELL COUNT,WBC 4.2 K/uL (4.0-11.0)
[2024-05-11 22:32] LABS: ALBUMIN 3.4 g/dL (3.4-5.0); BILIRUBIN TOTAL 0.9 mg/dL (0.0-1.0); BUN/CREATININE RATIO 30.8 (6-25); CALCIUM 9.2 mg/dL (8.5-10.1); CARBON DIOXIDE,CO2 24.7 mmol/L (21.0-32.0); EST CRCL DRUG DOSING (CG) 6.94 mL/min; POTASSIUM,K 5.7 mmol/L (3.5-5.1); PROTEIN TOTAL,TP 6.8 g/dL (6.4-8.2)
[2024-05-11 22:54] LABS: CREATININE 4.38 mg/dL (0.70-1.30)
[2024-05-11 22:55] LABS: CORONAVIRUS COVID-19 NAA NEGATIVE (NEGATIVE); INFLUENZA A NAA NEGATIVE (NEGATIVE); INFLUENZA B NAA NEGATIVE (NEGATIVE); RESPIRATORY SYNCYTIAL VIR NAA NEGATIVE (NEGATIVE)
[2024-05-11 23:07] LABS: APPEARANCE,URINE CLEAR (CLEAR); BILIRUBIN,URINE MODERATE (NEGATIVE); COLOR,URINE YELLOW; GLUCOSE,URINE NEGATIVE (NEGATIVE); KETONES,URINE TRACE mg/dL (NEGATIVE); LEUKOCYTE ESTERASE,URINE NEGATIVE (NEGATIVE); NITRITE,URINE NEGATIVE (NEGATIVE); OCCULT BLOOD,URINE NEGATIVE (NEGATIVE); PROTEIN,URINE 30 mg/dL (NEGATIVE); UROBILINOGEN,URINE 0.2 E.U./dL (0.2-1.0)
[2024-05-11 23:08] LABS: AMORPHOUS SEDIMENT,URINE FEW /HPF; EPITHELIAL CELLS,URINE OCCASIONAL /HPF; HYALINE CASTS,URINE MODERATE /HPF; RBC,URINE 0-5 /HPF; WBC,URINE 0-5 /HPF
[2024-05-11] MEDS: Dextrose 5%-0.45% NaCl 1,000 ML IV SCH (23:11)
[2024-05-11 23:51] LABS: BUN/CREATININE RATIO 30.7 (6-25); CALCIUM 8.9 mg/dL (8.5-10.1); CARBON DIOXIDE,CO2 25.1 mmol/L (21.0-32.0); EST CRCL DRUG DOSING (CG) 7.12 mL/min; POTASSIUM,K 5.4 mmol/L (3.5-5.1)
[2024-05-11 23:52] LABS: ANION GAP 23.3 mmol/L (5.0-15.0)
[2024-05-11 23:54] LABS: CREATININE 4.27 mg/dL (0.70-1.30)
[2024-05-12] MEDS: Dextrose 5% in Water 1,000 ML IV SCH (00:20)
[2024-05-12] MEDS: Dextrose 5%-0.45% NaCl 1,000 ML IV SCH (02:08)
[2024-05-12 04:08] LABS: ANION GAP 13.3 mmol/L (5.0-15.0); BUN/CREATININE RATIO 32.3 (6-25); CALCIUM 8.2 mg/dL (8.5-10.1); CARBON DIOXIDE,CO2 26.4 mmol/L (21.0-32.0); EST CRCL DRUG DOSING (CG) 7.62 mL/min; POTASSIUM,K 4.7 mmol/L (3.5-5.1)
[2024-05-12 04:10] LABS: CREATININE 3.87 mg/dL (0.70-1.30)
[2024-05-12 08:19] LABS: BASOPHILS ABSOLUTE AUTO 0.01 K/uL (0.02-0.10); BASOPHILS PERCENT AUTO 0.3 % (0.0-0.5); EOSINOPHILS ABSOLUTE AUTO 0.11 K/uL (0.04-0.40); EOSINOPHILS PERCENT AUTO 3.2 % (1.0-5.0); HEMATOCRIT 37.8 % (40.0-54.0); HEMOGLOBIN 12.7 g/dL (13.0-18.0); LYMPHOCYTES ABSOLUTE AUTO 0.31 K/uL (1.50-4.00); MEAN CORPUSCULAR HEMOGLOBIN 34.4 pg (27.0-32.0); MEAN CORPUSCULAR HGB CONC 33.6 g/dL (31.0-35.0); MEAN CORPUSCULAR VOLUME 102 fL (76-96); MEAN PLATELET VOLUME 12.3 fL (6.0-10.0); MONOCYTES ABSOLUTE AUTO 0.37 K/uL (0.20-0.80); MONOCYTES PERCENT AUTO 10.7 % (3.0-10.0); NEUTROPHILS ABSOLUTE AUTO 2.66 K/uL (2.00-7.50); NEUTROPHILS PERCENT AUTO 76.8 % (45.0-70.0); PLATELET COUNT,PLT 66 K/uL (150-400); RED BLOOD CELL COUNT 3.69 M/uL (4.50-6.50); RED CELL DISTRIBUTION WIDTH 14.4 % (11.0-16.0); WHITE BLOOD CELL COUNT,WBC 3.5 K/uL (4.0-11.0)
[2024-05-12 08:26] LABS: INR 1.2 (1.0-3.5); PTT,PARTIAL THROMBOPLSTIN TIME 27.8 SECONDS (24.4-33.2)
[2024-05-12 08:30] LABS: ANION GAP 11.8 mmol/L (5.0-15.0); BUN/CREATININE RATIO 33.1 (6-25); CALCIUM 8.4 mg/dL (8.5-10.1); CARBON DIOXIDE,CO2 27.4 mmol/L (21.0-32.0); EST CRCL DRUG DOSING (CG) 8.33 mL/min; POTASSIUM,K 4.2 mmol/L (3.5-5.1)
[2024-05-12 08:32] LABS: PROTHROMBIN TIME 12.1 sec (9.0-11.5)
[2024-05-12 08:37] LABS: CREATININE 3.54 mg/dL (0.70-1.30)
[2024-05-12 14:37] LABS: ANION GAP 12.9 mmol/L (5.0-15.0); BUN/CREATININE RATIO 38.1 (6-25); CALCIUM 8.3 mg/dL (8.5-10.1); CREATININE 2.94 mg/dL (0.70-1.30); EST CRCL DRUG DOSING (CG) 10.03 mL/min; POTASSIUM,K 3.9 mmol/L (3.5-5.1)
[2024-05-12] MEDS ORDERED: D5 1/2 NS w/ 40 mEq/L KCl 1,000 ML IV SCH (17:30)
[2024-05-12] MEDS: D5 1/2 NS w/ 40 mEq/L KCl 1,000 ML IV ONE (17:45)
[2024-05-12] MEDS: D5 1/2 NS w/ 20 mEq/L KCl 1,000 ML IV ONE (18:03)
[2024-05-12 20:17] LABS: ANION GAP 11.9 mmol/L (5.0-15.0); BUN/CREATININE RATIO 39.5 (6-25); CALCIUM 8.2 mg/dL (8.5-10.1); CARBON DIOXIDE,CO2 24.1 mmol/L (21.0-32.0); CREATININE 2.53 mg/dL (0.70-1.30); EST CRCL DRUG DOSING (CG) 11.65 mL/min
[2024-05-13 09:38] LABS: EOSINOPHILS ABSOLUTE AUTO 0.13 K/uL (0.04-0.40); EOSINOPHILS PERCENT AUTO 3.4 % (1.0-5.0); HEMATOCRIT 41.9 % (40.0-54.0); HEMOGLOBIN 13.5 g/dL (13.0-18.0); LYMPHOCYTES ABSOLUTE AUTO 0.62 K/uL (1.50-4.00); LYMPHOCYTES PERCENT AUTO 16.4 % (20.0-40.0); MEAN CORPUSCULAR HEMOGLOBIN 33.2 pg (27.0-32.0); MEAN CORPUSCULAR HGB CONC 32.2 g/dL (31.0-35.0); MEAN CORPUSCULAR VOLUME 103 fL (76-96); MEAN PLATELET VOLUME 13.7 fL (6.0-10.0); MONOCYTES ABSOLUTE AUTO 0.35 K/uL (0.20-0.80); MONOCYTES PERCENT AUTO 9.2 % (3.0-10.0); NEUTROPHILS ABSOLUTE AUTO 2.69 K/uL (2.00-7.50); PLATELET COUNT,PLT 53 K/uL (150-400); RED BLOOD CELL COUNT 4.07 M/uL (4.50-6.50); RED CELL DISTRIBUTION WIDTH 14.1 % (11.0-16.0); WHITE BLOOD CELL COUNT,WBC 3.8 K/uL (4.0-11.0)
[2024-05-13 09:52] LABS: ANION GAP 12.6 mmol/L (5.0-15.0); BUN/CREATININE RATIO 40.7 (6-25); CALCIUM 8.5 mg/dL (8.5-10.1); CREATININE 1.89 mg/dL (0.70-1.30); EST CRCL DRUG DOSING (CG) 15.6 mL/min; POTASSIUM,K 4.6 mmol/L (3.5-5.1)
[2024-05-13] MEDS: Dextrose 5% in Water 1,000 ML IV SCH (11:53)
[2024-05-15 08:21] LABS: EOSINOPHILS ABSOLUTE AUTO 0.01 K/uL (0.04-0.40); EOSINOPHILS PERCENT AUTO 0.2 % (1.0-5.0); HEMATOCRIT 37.7 % (40.0-54.0); HEMOGLOBIN 12.9 g/dL (13.0-18.0); LYMPHOCYTES ABSOLUTE AUTO 0.61 K/uL (1.50-4.00); MEAN CORPUSCULAR HEMOGLOBIN 33.2 pg (27.0-32.0); MEAN CORPUSCULAR HGB CONC 34.2 g/dL (31.0-35.0); MEAN CORPUSCULAR VOLUME 97 fL (76-96); MEAN PLATELET VOLUME 12.7 fL (6.0-10.0); MONOCYTES ABSOLUTE AUTO 0.39 K/uL (0.20-0.80); MONOCYTES PERCENT AUTO 7.7 % (3.0-10.0); NEUTROPHILS ABSOLUTE AUTO 4.07 K/uL (2.00-7.50); NEUTROPHILS PERCENT AUTO 80.1 % (45.0-70.0); PLATELET COUNT,PLT 65 K/uL (150-400); RED BLOOD CELL COUNT 3.88 M/uL (4.50-6.50); RED CELL DISTRIBUTION WIDTH 12.9 % (11.0-16.0); WHITE BLOOD CELL COUNT,WBC 5.1 K/uL (4.0-11.0)
[2024-05-15 08:30] LABS: ANION GAP 10.6 mmol/L (5.0-15.0); CALCIUM 7.6 mg/dL (8.5-10.1); CREATININE 1.18 mg/dL (0.70-1.30); EST CRCL DRUG DOSING (CG) 24.99 mL/min; POTASSIUM,K 3.6 mmol/L (3.5-5.1)
[2024-05-15] MEDS: Dextrose 5%-0.45% NaCl 1,000 ML IV SCH (20:00)
[2024-05-16] MEDS: DULoxetine 20 MG Cap PO SCH (07:22)
[2024-05-16 09:16] LABS: A/G RATIO 0.7 (0.8-2.0); ALBUMIN 1.9 g/dL (3.4-5.0); ANION GAP 8.2 mmol/L (5.0-15.0); BUN/CREATININE RATIO 18.9 (6-25); CALCIUM 7.7 mg/dL (8.5-10.1); CARBON DIOXIDE,CO2 25.1 mmol/L (21.0-32.0); CREATININE 1.11 mg/dL (0.70-1.30); EST CRCL DRUG DOSING (CG) 26.56 mL/min; POTASSIUM,K 3.3 mmol/L (3.5-5.1); PROTEIN TOTAL,TP 4.8 g/dL (6.4-8.2)
[2024-05-17] MEDS ORDERED: Potassium Chloride 20 MEQ Tab.ER PO SCH (09:15)
[2024-05-17] MEDS: Potassium Chloride 10% 20 MEQ/15 ML Soln 15 ML UD Cup PO SCH (09:31)
[2024-05-17] MEDS: Ondansetron 4 MG Tab.DIS PO PRN (09:31)
[2024-05-17 10:26] LABS: ANION GAP 8.5 mmol/L (5.0-15.0); BUN/CREATININE RATIO 16.8 (6-25); C-REACTIVE PROTEIN 146.4 mg/L (<5.0); CALCIUM 8.1 mg/dL (8.5-10.1); CARBON DIOXIDE,CO2 28.8 mmol/L (21.0-32.0); CREATININE 1.07 mg/dL (0.70-1.30); EST CRCL DRUG DOSING (CG) 27.56 mL/min; POTASSIUM,K 3.3 mmol/L (3.5-5.1)
[2024-05-18 09:12] LABS: A/G RATIO 0.6 (0.8-2.0); ALBUMIN 1.7 g/dL (3.4-5.0); ANION GAP 7.4 mmol/L (5.0-15.0); BILIRUBIN TOTAL 0.7 mg/dL (0.0-1.0); BUN/CREATININE RATIO 13.9 (6-25); CALCIUM 7.8 mg/dL (8.5-10.1); CARBON DIOXIDE,CO2 27.2 mmol/L (21.0-32.0); CREATININE 1.01 mg/dL (0.70-1.30); EST CRCL DRUG DOSING (CG) 29.19 mL/min; POTASSIUM,K 3.6 mmol/L (3.5-5.1); PROTEIN TOTAL,TP 4.7 g/dL (6.4-8.2)
[2024-05-19 09:03] LABS: INR 1.1 (1.0-3.5)
[2024-05-19 09:23] LABS: PROTHROMBIN TIME 11.6 sec (9.0-11.5)
[2024-05-19 09:59] LABS: TSH ULTRASENSITIVE 1.939 uIU/mL (0.358-3.740)
[2024-05-19] MEDS: Dexamethasone 4 MG/ML SDV IVPUSH ONE (13:37)
[2024-05-19 14:09] LABS: MEAN CORPUSCULAR HEMOGLOBIN 33.6 pg (27.0-32.0); MEAN CORPUSCULAR HGB CONC 34.8 g/dL (31.0-35.0); MEAN CORPUSCULAR VOLUME 97 fL (76-96); RED CELL DISTRIBUTION WIDTH 12.5 % (11.0-16.0)
[2024-05-19 14:25] LABS: HEMOGLOBIN 12.3 g/dL (13.0-18.0); RED BLOOD CELL COUNT 3.66 M/uL (4.50-6.50); WHITE BLOOD CELL COUNT,WBC 4.5 K/uL (4.0-11.0)
[2024-05-19 14:26] LABS: HEMATOCRIT 35.4 % (40.0-54.0); MEAN PLATELET VOLUME 12.3 fL (6.0-10.0)
[2024-05-19 14:37] LABS: PLATELET COUNT,PLT 67 K/uL (150-400)
[2024-05-20] MEDS: Dexamethasone 4 MG/ML 5 ML MDV IVPUSH SCH (08:03)
[2024-05-20 08:53] LABS: ANION GAP 8.7 mmol/L (5.0-15.0); BUN/CREATININE RATIO 9.5 (6-25); CARBON DIOXIDE,CO2 30.3 mmol/L (21.0-32.0); CREATININE 0.95 mg/dL (0.70-1.30); EST CRCL DRUG DOSING (CG) 31.04 mL/min
[2024-05-20 11:02] LABS: PLATELET COUNT ESTIMATE DECREASED
[2024-05-20] MEDS: Dextrose 5%-0.9% NaCl 1,000 ML IV SCH (16:22)
[2024-05-20] MEDS: Docusate Sodium 100 MG Cap PO PRN (19:18)
[2024-05-20 22:01] LABS: MYOGLOBIN SERUM 57 ng/mL (<=72)
[2024-05-21 01:34] LABS: ANTI-NUCLEAR AB ANA,IGG ELISA None Detected (None Detected)
[2024-05-21 01:35] LABS: CORTISOL,SERUM 18.7 ug/dL
[2024-05-21] MEDS: Polyethylene Glycol 3350 Powder 17 GM Packet PO SCH (10:03)
[2024-05-21] MEDS: Bisacodyl 10 MG Supp RECTAL ONE (10:03)
[2024-05-22 09:01] LABS: ANION GAP 10.4 mmol/L (5.0-15.0); BUN/CREATININE RATIO 11.3 (6-25); CALCIUM 7.6 mg/dL (8.5-10.1); CARBON DIOXIDE,CO2 28.2 mmol/L (21.0-32.0); CREATININE 0.97 mg/dL (0.70-1.30); EST CRCL DRUG DOSING (CG) 36.23 mL/min; POTASSIUM,K 3.6 mmol/L (3.5-5.1)
[2024-05-22 09:08] LABS: BASOPHILS ABSOLUTE AUTO 0.01 K/uL (0.02-0.10); BASOPHILS PERCENT AUTO 0.3 % (0.0-0.5); EOSINOPHILS ABSOLUTE AUTO 0.03 K/uL (0.04-0.40); EOSINOPHILS PERCENT AUTO 0.8 % (1.0-5.0); HEMATOCRIT 32.8 % (40.0-54.0); HEMOGLOBIN 11.3 g/dL (13.0-18.0); LYMPHOCYTES ABSOLUTE AUTO 1.01 K/uL (1.50-4.00); LYMPHOCYTES PERCENT AUTO 26.6 % (20.0-40.0); MEAN CORPUSCULAR HEMOGLOBIN 33.1 pg (27.0-32.0); MEAN CORPUSCULAR HGB CONC 34.5 g/dL (31.0-35.0); MEAN CORPUSCULAR VOLUME 96 fL (76-96); MEAN PLATELET VOLUME 11.3 fL (6.0-10.0); MONOCYTES PERCENT AUTO 5.3 % (3.0-10.0); NEUTROPHILS ABSOLUTE AUTO 2.54 K/uL (2.00-7.50); RED BLOOD CELL COUNT 3.41 M/uL (4.50-6.50); RED CELL DISTRIBUTION WIDTH 12.6 % (11.0-16.0); WHITE BLOOD CELL COUNT,WBC 3.8 K/uL (4.0-11.0)
[2024-05-22 09:34] LABS: PLATELET COUNT,PLT 54 K/uL (150-400)
[2024-05-22] MEDS: NS + KCl 20mEq/L 1,000 ML IV SCH (12:04)
[2024-05-23] MEDS: Dextrose 5%-0.9% NaCl 1,000 ML IV SCH (01:04)
[2024-05-23] MEDS: Potassium Chloride 10% 20 MEQ/15 ML Soln 15 ML UD Cup PO SCH (17:31)
[2024-05-24 08:48] LABS: BASOPHILS ABSOLUTE AUTO 0.02 K/uL (0.02-0.10); BASOPHILS PERCENT AUTO 0.5 % (0.0-0.5); EOSINOPHILS ABSOLUTE AUTO 0.07 K/uL (0.04-0.40); EOSINOPHILS PERCENT AUTO 1.7 % (1.0-5.0); HEMATOCRIT 31.2 % (40.0-54.0); HEMOGLOBIN 10.5 g/dL (13.0-18.0); LYMPHOCYTES ABSOLUTE AUTO 0.91 K/uL (1.50-4.00); LYMPHOCYTES PERCENT AUTO 21.8 % (20.0-40.0); MEAN CORPUSCULAR HEMOGLOBIN 33.1 pg (27.0-32.0); MEAN CORPUSCULAR HGB CONC 33.7 g/dL (31.0-35.0); MEAN CORPUSCULAR VOLUME 98 fL (76-96); MEAN PLATELET VOLUME 10.5 fL (6.0-10.0); MONOCYTES ABSOLUTE AUTO 0.18 K/uL (0.20-0.80); MONOCYTES PERCENT AUTO 4.3 % (3.0-10.0); NEUTROPHILS ABSOLUTE AUTO 2.99 K/uL (2.00-7.50); NEUTROPHILS PERCENT AUTO 71.7 % (45.0-70.0); RED BLOOD CELL COUNT 3.17 M/uL (4.50-6.50); RED CELL DISTRIBUTION WIDTH 12.7 % (11.0-16.0); WHITE BLOOD CELL COUNT,WBC 4.2 K/uL (4.0-11.0)
[2024-05-24 09:03] LABS: PLATELET COUNT,PLT 54 K/uL (150-400)
[2024-05-24 09:04] LABS: A/G RATIO 0.6 (0.8-2.0); ALBUMIN 1.9 g/dL (3.4-5.0); ANION GAP 5.2 mmol/L (5.0-15.0); BILIRUBIN TOTAL 0.4 mg/dL (0.0-1.0); BUN/CREATININE RATIO 11.7 (6-25); CALCIUM 7.6 mg/dL (8.5-10.1); CREATININE 1.03 mg/dL (0.70-1.30); EST CRCL DRUG DOSING (CG) 35.08 mL/min; POTASSIUM,K 4.2 mmol/L (3.5-5.1); PROTEIN TOTAL,TP 4.9 g/dL (6.4-8.2)
[2024-05-24 09:57] LABS: SEDIMENTATION RATE MANUAL 27 mm/hr (0-20)
[2024-05-24] MEDS ORDERED: Potassium Chloride 10% 20 MEQ/15 ML Soln 15 ML UD Cup PO SCH (17:00)
[2024-05-24] MEDS: Multivitamin Tab PO SCH (19:09)
[2024-05-24] MEDS: Tamsulosin 0.4 MG Cap.ER PO SCH (19:09)
[2024-05-25] MEDS: Bacitracin Oint 1 GM U/D Packet ONE (19:56)
[2024-05-27 15:00] LABS: B. BURGDORFERI IGG IMMUNOBLOT Positive (Negative); B. BURGDORFERI IGM IMMUNOBLOT Negative (Negative)
[2024-05-28] MEDS ORDERED: Doxycycline 100 MG Cap PO SCH (08:00)
[2024-05-30 23:40] LABS: BORRELIA SPECIES SOURCE Blood; BORRELIA SPP DNA DETECTION PCR Not Detected
== END 2024-05-27 09:49 | disposition swing bed (61) | DRG 641 ==
LOC: LB.ED 21:25 → LB.MS 05-12 00:50 → UNDOADMIN 05-12 01:15 → LB.MS 05-12 01:15
PROVIDERS: ADMIT Emergency Medicine; ATTEND Surgery
DX: E87.0 Hyperosmolality and hypernatremia (principal); R64 Cachexia; E46 Unspecified protein-calorie malnutrition; F17.210 Nicotine dependence, cigarettes, uncomplicated; F15.90 Other stimulant use, unspecified, uncomplicated; E86.0 Dehydration; R62.7 Adult failure to thrive; D64.9 Anemia, unspecified; D69.6 Thrombocytopenia, unspecified; R33.9 Retention of urine, unspecified; E87.1 Hypo-osmolality and hyponatremia; Z66 Do not resuscitate; Z79.1 Long term (current) use of non-steroidal anti-inflammatories (NSAID); Z79.899 Other long term (current) drug therapy; Z79.01 Long term (current) use of anticoagulants; Z98.890 Other specified postprocedural states
CPT/HCPCS: 0241U; 36415; 51702; 70450; 71250; 72125; 74176; 80048; 80053; 81001; 82533; 82550; 82947; 83605; 83874; 84443; 85025; 85610; 85651; 85730; 86038; 86140; 86617; 87040; 87338; 88104; 92507-GN; 92523-GN; 92526-GN; 92610-GN; 96360; 96361; 97110-GO; 97110-GP; 97116-GP; 97161-GP; 97165-GO; 97530-GP; 97535-GO; 99223; 99231; 99232; 99233; 99285-25; A0425; A0429; A9270-GY; C1758; J1100; J3480; J7030; J7060; J7120; J7799; Q0162

== ENCOUNTER 2024-05-27 09:41 | Inpatient (IN) | payer MEDICARE ==
[2024-05-27] MEDS ORDERED: Ondansetron 4 MG Tab.DIS PO PRN (11:24)
[2024-05-27] MEDS: Multivitamin Tab PO SCH (19:16)
[2024-05-27] MEDS: Tamsulosin 0.4 MG Cap.ER PO SCH (19:16)
[2024-05-27] MEDS: Heparin Sodium 5,000 Units/ML Vial SUBCUT SCH (19:17)
[2024-05-27] MEDS: Tuberculin, PPD 5 Units/0.1 ML 1 ML MDV IDERM ONE (19:19)
[2024-05-27] MEDS: Tamsulosin 0.4 MG Cap.ER ONE (20:22)
[2024-05-27] MEDS: Multivitamin Tab ONE (20:22)
[2024-05-28] MEDS: DULoxetine 20 MG Cap PO SCH (07:11)
[2024-05-28] MEDS: DULoxetine 20 MG Cap ONE (08:47)
[2024-05-28] MEDS: Tamsulosin 0.4 MG Cap.ER ONE (08:47)
[2024-05-29] MEDS: Acetaminophen 325 MG Tab PO PRN (10:30)
[2024-06-03] MEDS ORDERED: Menthol/Zinc Oxide Ointment 113 GM Tube TOP PRN (10:00)
[2024-06-10] MEDS: Tuberculin, PPD 5 Units/0.1 ML 1 ML MDV IDERM ONE (20:03)
[2024-06-11 09:40] LABS: BASOPHILS ABSOLUTE AUTO 0.02 K/uL (0.02-0.10); BASOPHILS PERCENT AUTO 0.3 % (0.0-0.5); EOSINOPHILS ABSOLUTE AUTO 0.06 K/uL (0.04-0.40); EOSINOPHILS PERCENT AUTO 0.9 % (1.0-5.0); LYMPHOCYTES ABSOLUTE AUTO 1.08 K/uL (1.50-4.00); LYMPHOCYTES PERCENT AUTO 16.8 % (20.0-40.0); MEAN CORPUSCULAR HEMOGLOBIN 33.3 pg (27.0-32.0); MEAN CORPUSCULAR HGB CONC 32.3 g/dL (31.0-35.0); MEAN CORPUSCULAR VOLUME 103 fL (76-96); MEAN PLATELET VOLUME 9.1 fL (6.0-10.0); MONOCYTES PERCENT AUTO 9.3 % (3.0-10.0); NEUTROPHILS ABSOLUTE AUTO 4.67 K/uL (2.00-7.50); NEUTROPHILS PERCENT AUTO 72.7 % (45.0-70.0); PLATELET COUNT,PLT 229 K/uL (150-400); RED CELL DISTRIBUTION WIDTH 14.9 % (11.0-16.0); WHITE BLOOD CELL COUNT,WBC 6.4 K/uL (4.0-11.0)
[2024-06-11 10:00] LABS: A/G RATIO 0.6 (0.8-2.0); ALANINE AMINOTRANSFERASE,ALT 60 U/L (12-78); ALBUMIN 2.3 g/dL (3.4-5.0); ALKALINE PHOSPHATASE 164 U/L (46-116); ANION GAP 10.2 mmol/L (5.0-15.0); ASPARTATE AMNIOTRANSFERASE,AST 46 U/L (15-37); BILIRUBIN TOTAL 0.3 mg/dL (0.0-1.0); BLOOD UREA NITROGEN,BUN 35 mg/dL (8-26); BUN/CREATININE RATIO 25.4 (6-25); CALCIUM 7.7 mg/dL (8.5-10.1); CARBON DIOXIDE,CO2 28.8 mmol/L (21.0-32.0); CHLORIDE,CL 105 mmol/L (98-107); CREATININE 1.38 mg/dL (0.70-1.30); EST CRCL DRUG DOSING (CG) 29.01 mL/min; ESTIMATED GFR 50 mL/min (>60); GLUCOSE RANDOM 105 mg/dL (74-100); PROTEIN TOTAL,TP 5.9 g/dL (6.4-8.2); SODIUM,NA 140 mmol/L (136-145)
[2024-06-11 10:27] LABS: C-REACTIVE PROTEIN < 5.0 mg/L (<5.0)
[2024-06-11] MEDS: Lisinopril 5 MG Tab PO SCH (15:06)
[2024-06-12 10:36] LABS: INFLUENZA A NAA NEGATIVE (NEGATIVE); INFLUENZA B NAA NEGATIVE (NEGATIVE); RESPIRATORY SYNCYTIAL VIR NAA NEGATIVE (NEGATIVE)
[2024-06-12 10:41] LABS: CORONAVIRUS COVID-19 NAA POSITIVE (NEGATIVE)
[2024-06-12 17:22] LABS: FOLATE,SERUM 10.9 ng/mL (>=5.9)
[2024-06-18 12:24] LABS: HEMATOCRIT 29.9 % (40.0-54.0); HEMOGLOBIN 9.7 g/dL (13.0-18.0); MEAN CORPUSCULAR HEMOGLOBIN 32.9 pg (27.0-32.0); MEAN CORPUSCULAR HGB CONC 32.4 g/dL (31.0-35.0); MEAN PLATELET VOLUME 9.7 fL (6.0-10.0); RED BLOOD CELL COUNT 2.95 M/uL (4.50-6.50); RED CELL DISTRIBUTION WIDTH 14.6 % (11.0-16.0); WHITE BLOOD CELL COUNT,WBC 4.8 K/uL (4.0-11.0)
[2024-06-18 12:38] LABS: A/G RATIO 0.6 (0.8-2.0); ALBUMIN 2.1 g/dL (3.4-5.0); ANION GAP 8.8 mmol/L (5.0-15.0); BILIRUBIN TOTAL 0.5 mg/dL (0.0-1.0); BUN/CREATININE RATIO 22.9 (6-25); CALCIUM 7.8 mg/dL (8.5-10.1); CARBON DIOXIDE,CO2 30.3 mmol/L (21.0-32.0); CREATININE 1.09 mg/dL (0.70-1.30); EST CRCL DRUG DOSING (CG) 33.92 mL/min; MAGNESIUM 2.1 mg/dL (1.8-2.4); POTASSIUM,K 5.1 mmol/L (3.5-5.1); PROTEIN TOTAL,TP 5.5 g/dL (6.4-8.2)
[2024-06-20] MEDS: Carbamide Peroxide 6.5% Otic Soln 15 ML Bottle EARBOTH SCH (10:30)
== END 2024-06-22 13:55 | DRG 947 ==
LOC: LB.MS 09:41 → UNDOADMIN 09:41
PROVIDERS: ADMIT Surgery; ATTEND Family Medicine
PROC: 8E0ZXY6 Isolation (ICD-10-PCS; principal; 2024-06-11)
DX: R53.81 Other malaise (principal); U07.1 COVID-19; E46 Unspecified protein-calorie malnutrition; Z68.1 Body mass index [BMI] 19.9 or less, adult; R64 Cachexia; N17.9 Acute kidney failure, unspecified; E87.0 Hyperosmolality and hypernatremia; R53.1 Weakness; R33.9 Retention of urine, unspecified; D69.6 Thrombocytopenia, unspecified; R62.7 Adult failure to thrive; E88.09 Other disorders of plasma-protein metabolism, not elsewhere classified; D64.9 Anemia, unspecified; N40.0 Benign prostatic hyperplasia without lower urinary tract symptoms; R60.0 Localized edema; I10 Essential (primary) hypertension; E86.0 Dehydration; Z66 Do not resuscitate; E87.5 Hyperkalemia; H61.23 Impacted cerumen, bilateral; L89.152 Pressure ulcer of sacral region, stage 2; F32.A Depression, unspecified
CPT/HCPCS: 0241U; 36415; 70450; 80053; 82607; 82746; 83735; 83880; 85025; 85027; 86140; 86580; 92507-GN; 92526-GN; 97110-GO; 97110-GP; 97116-GP; 97530-GO; 97530-GP; 97535-GO; 99305; 99307; 99308; 99315; A9270-GY; J1644

== ENCOUNTER 2024-11-24 18:04 | Inpatient (IN) | payer MEDICARE ==
[2024-11-24] MEDS ORDERED: Sodium Chloride 0.9% 10 ML Syringe FLUSH PRN (18:18)
[2024-11-24] MEDS: diazePAM 5 MG/ML MDV IVPUSH ONE (18:22)
[2024-11-24] MEDS: Ondansetron 4 MG/2 ML SDV IVPUSH ONE (18:24)
[2024-11-24] MEDS: LORazepam 2 MG/ML SDV IVPUSH ONE ×4 (18:26→22:10)
[2024-11-24 18:32] LABS: MEAN PLATELET VOLUME 9.1 fL (6.0-10.0); PLATELET COUNT,PLT 203.0 K/uL (150-400); RED BLOOD CELL COUNT 3.88 M/uL (4.50-6.50); RED CELL DISTRIBUTION WIDTH 15.3 % (11.0-16.0); WHITE BLOOD CELL COUNT,WBC 11.1 K/uL (4.0-11.0)
[2024-11-24 18:50] LABS: BLOOD UREA NITROGEN,BUN 30 mg/dL (8-26); CARBON DIOXIDE,CO2 26.9 mmol/L (21.0-32.0); CREATININE 1.71 mg/dL (0.70-1.30); ESTIMATED GFR 39 mL/min (>60); GLUCOSE RANDOM 241 mg/dL (74-100); TROPONIN I HIGH SENSITIVITY 15.6 pg/ml (<=60.4)
[2024-11-24] MEDS: LORazepam 2 MG/ML SDV ONE ×2 (18:51→22:31)
[2024-11-24 19:04] LABS: CHLORIDE,CL 101 mmol/L (98-107); POTASSIUM,K 4.0 mmol/L (3.5-5.1); SODIUM,NA 133 mmol/L (136-145)
[2024-11-24 19:05] LABS: GLUCOSE,URINE NEGATIVE (NEGATIVE); OCCULT BLOOD,URINE NEGATIVE (NEGATIVE)
[2024-11-24 19:08] LABS: APPEARANCE,URINE CLEAR (CLEAR)
[2024-11-24] MEDS: levETIRAcetam 500 MG/5 ML SDV ONE ×2 (19:32→21:10)
[2024-11-24] MEDS: diazePAM 5 MG/ML MDV ONE (19:32)
[2024-11-24] MEDS: Ondansetron 4 MG/2 ML SDV ONE (19:32)
[2024-11-24] MEDS: Midazolam 1 MG/ML 5 ML SDV IVPUSH ONE (20:15)
[2024-11-24] MEDS ORDERED: Iopamidol 755 Mg/ML 100 ML Bottle IV SCH (21:30)
[2024-11-24] MEDS: Labetalol 100 MG/20 ML MDV IVPUSH ONE (22:35)
[2024-11-24] MEDS: Sodium Chloride 0.9% 50 ML SDV FLUSH ONE (23:19)
[2024-11-25] MEDS: Lactated Ringers 1,000 ML IV SCH (00:06)
[2024-11-25] MEDS: LORazepam 2 MG/ML SDV IVPUSH PRN (03:33)
[2024-11-25 11:46] LABS: BASOPHILS ABSOLUTE AUTO 0.02 K/uL (0.02-0.10); BASOPHILS PERCENT AUTO 0.2 % (0.0-0.5); EOSINOPHILS ABSOLUTE AUTO 0.25 K/uL (0.04-0.40); EOSINOPHILS PERCENT AUTO 2.8 % (1.0-5.0); LYMPHOCYTES ABSOLUTE AUTO 0.88 K/uL (1.50-4.00); LYMPHOCYTES PERCENT AUTO 9.7 % (20.0-40.0); MEAN PLATELET VOLUME 9.2 fL (6.0-10.0); MONOCYTES ABSOLUTE AUTO 0.59 K/uL (0.20-0.80); MONOCYTES PERCENT AUTO 6.5 % (3.0-10.0); NEUTROPHILS ABSOLUTE AUTO 7.29 K/uL (2.00-7.50); NEUTROPHILS PERCENT AUTO 80.8 % (45.0-70.0); PLATELET COUNT,PLT 177 K/uL (150-400); RED BLOOD CELL COUNT 3.78 M/uL (4.50-6.50); RED CELL DISTRIBUTION WIDTH 15.3 % (11.0-16.0); WHITE BLOOD CELL COUNT,WBC 9.0 K/uL (4.0-11.0)
[2024-11-25 12:09] LABS: A/G RATIO 0.8 (0.8-2.0); ALANINE AMINOTRANSFERASE,ALT 31.0 U/L (12-78); ASPARTATE AMNIOTRANSFERASE,AST 33.0 U/L (15-37); BILIRUBIN TOTAL 0.4 mg/dL (0.0-1.0); BLOOD UREA NITROGEN,BUN 21.0 mg/dL (8-26); CARBON DIOXIDE,CO2 29.9 mmol/L (21.0-32.0); CHLORIDE,CL 109.0 mmol/L (98-107); CREATININE 1.53 mg/dL (0.70-1.30); EST CRCL DRUG DOSING (CG) 31.8 mL/min; ESTIMATED GFR 44.0 mL/min (>60); GLUCOSE RANDOM 103.0 mg/dL (74-100); LACTIC ACID 1.3 mmol/L (0.4-2.0); POTASSIUM,K 4.8 mmol/L (3.5-5.1); PROTEIN TOTAL,TP 6.5 g/dL (6.4-8.2); SODIUM,NA 144.0 mmol/L (136-145)
[2024-11-25 12:41] LABS: TROPONIN I HIGH SENSITIVITY 284.4 pg/ml (<=60.4)
[2024-11-25] MEDS: Heparin Sodium 5,000 Units/ML Vial IVPUSH ONE ×2 (14:49→22:44)
[2024-11-25 15:17] LABS: INR 1.1 (1.0-3.5); PTT,PARTIAL THROMBOPLSTIN TIME 26.6 SECONDS (24.4-33.2)
[2024-11-25] MEDS: diazePAM 5 MG/ML MDV IVPUSH SCH (17:51)
[2024-11-26 09:18] LABS: MEAN PLATELET VOLUME 9.9 fL (6.0-10.0); PLATELET COUNT,PLT 161.0 K/uL (150-400); RED BLOOD CELL COUNT 3.4 M/uL (4.50-6.50); RED CELL DISTRIBUTION WIDTH 15.5 % (11.0-16.0); WHITE BLOOD CELL COUNT,WBC 9.0 K/uL (4.0-11.0)
[2024-11-26 09:33] LABS: BLOOD UREA NITROGEN,BUN 22.0 mg/dL (8-26); CARBON DIOXIDE,CO2 25.9 mmol/L (21.0-32.0); CHLORIDE,CL 112.0 mmol/L (98-107); CREATININE 1.49 mg/dL (0.70-1.30); EST CRCL DRUG DOSING (CG) 32.66 mL/min; ESTIMATED GFR 46.0 mL/min (>60); GLUCOSE RANDOM 86.0 mg/dL (74-100); POTASSIUM,K 4.5 mmol/L (3.5-5.1); SODIUM,NA 146.0 mmol/L (136-145)
[2024-11-26 09:50] LABS: TROPONIN I HIGH SENSITIVITY 114.8 pg/ml (<=60.4)
[2024-11-26] MEDS ORDERED: D5 1/2 NS w/ 10 mEq/L KCl 1,000 ML IV SCH (11:00)
[2024-11-26] MEDS: D5 1/2 NS w/ 40 mEq/L KCl 1,000 ML IV SCH (11:50)
[2024-11-26] MEDS: Heparin Sodium 5,000 Units/ML Vial IVPUSH ONE (12:29)
[2024-11-26] MEDS ORDERED: hydrALAZINE 20 MG/ML SDV IVPUSH PRN (17:25)
[2024-11-26] MEDS: hydrALAZINE 20 MG/ML SDV IVPUSH ONE ×2 (17:56→20:39)
[2024-11-26 23:50] LABS: BASOPHILS ABSOLUTE AUTO 0.02 K/uL (0.02-0.10); BASOPHILS PERCENT AUTO 0.2 % (0.0-0.5); EOSINOPHILS ABSOLUTE AUTO 0.38 K/uL (0.04-0.40); EOSINOPHILS PERCENT AUTO 4.1 % (1.0-5.0); LYMPHOCYTES ABSOLUTE AUTO 0.91 K/uL (1.50-4.00); LYMPHOCYTES PERCENT AUTO 9.8 % (20.0-40.0); MEAN PLATELET VOLUME 9.6 fL (6.0-10.0); MONOCYTES ABSOLUTE AUTO 0.72 K/uL (0.20-0.80); MONOCYTES PERCENT AUTO 7.8 % (3.0-10.0); NEUTROPHILS ABSOLUTE AUTO 7.25 K/uL (2.00-7.50); NEUTROPHILS PERCENT AUTO 78.1 % (45.0-70.0); PLATELET COUNT,PLT 166 K/uL (150-400); RED BLOOD CELL COUNT 3.68 M/uL (4.50-6.50); RED CELL DISTRIBUTION WIDTH 15.6 % (11.0-16.0); WHITE BLOOD CELL COUNT,WBC 9.3 K/uL (4.0-11.0)
[2024-11-27 00:03] LABS: BLOOD UREA NITROGEN,BUN 17.0 mg/dL (8-26); CARBON DIOXIDE,CO2 27.1 mmol/L (21.0-32.0); CHLORIDE,CL 110.0 mmol/L (98-107); CREATININE 1.4 mg/dL (0.70-1.30); EST CRCL DRUG DOSING (CG) 34.76 mL/min; ESTIMATED GFR 49.0 mL/min (>60); GLUCOSE RANDOM 123.0 mg/dL (74-100); POTASSIUM,K 4.5 mmol/L (3.5-5.1); SODIUM,NA 145.0 mmol/L (136-145)
[2024-11-27 00:04] LABS: TROPONIN I HIGH SENSITIVITY 82.4 pg/ml (<=60.4)
[2024-11-27] MEDS: Heparin Sodium 5,000 Units/ML Vial IVPUSH ONE (00:24)
[2024-11-27] MEDS: Metoprolol Tartrate 5 MG/5 ML SDV IVPUSH ONE (00:26)
[2024-11-27 07:36] LABS: MEAN PLATELET VOLUME 9.5 fL (6.0-10.0); PLATELET COUNT,PLT 151.0 K/uL (150-400); RED BLOOD CELL COUNT 3.35 M/uL (4.50-6.50); RED CELL DISTRIBUTION WIDTH 15.5 % (11.0-16.0); WHITE BLOOD CELL COUNT,WBC 7.3 K/uL (4.0-11.0)
[2024-11-27 07:47] LABS: BLOOD UREA NITROGEN,BUN 15.0 mg/dL (8-26); CARBON DIOXIDE,CO2 28.3 mmol/L (21.0-32.0); CHLORIDE,CL 112.0 mmol/L (98-107); CREATININE 1.5 mg/dL (0.70-1.30); EST CRCL DRUG DOSING (CG) 32.44 mL/min; ESTIMATED GFR 45.0 mL/min (>60); GLUCOSE RANDOM 93.0 mg/dL (74-100); POTASSIUM,K 4.5 mmol/L (3.5-5.1); SODIUM,NA 145.0 mmol/L (136-145)
[2024-11-27 07:56] LABS: TROPONIN I HIGH SENSITIVITY 90.1 pg/ml (<=60.4)
[2024-11-27] MEDS ORDERED: Metoprolol Tartrate 5 MG/5 ML SDV IVPUSH PRN (08:19)
[2024-11-28 08:27] LABS: BASOPHILS ABSOLUTE AUTO 0.02 K/uL (0.02-0.10); BASOPHILS PERCENT AUTO 0.3 % (0.0-0.5); EOSINOPHILS ABSOLUTE AUTO 0.52 K/uL (0.04-0.40); EOSINOPHILS PERCENT AUTO 8.0 % (1.0-5.0); LYMPHOCYTES ABSOLUTE AUTO 1.05 K/uL (1.50-4.00); LYMPHOCYTES PERCENT AUTO 16.2 % (20.0-40.0); MEAN PLATELET VOLUME 9.2 fL (6.0-10.0); MONOCYTES ABSOLUTE AUTO 0.47 K/uL (0.20-0.80); MONOCYTES PERCENT AUTO 7.2 % (3.0-10.0); NEUTROPHILS ABSOLUTE AUTO 4.43 K/uL (2.00-7.50); NEUTROPHILS PERCENT AUTO 68.3 % (45.0-70.0); PLATELET COUNT,PLT 164 K/uL (150-400); RED BLOOD CELL COUNT 3.51 M/uL (4.50-6.50); RED CELL DISTRIBUTION WIDTH 15.5 % (11.0-16.0); WHITE BLOOD CELL COUNT,WBC 6.5 K/uL (4.0-11.0)
[2024-11-28] MEDS: Amoxicillin/Clavulanate K 875-125 MG Tab PO ONE (13:44)
[2024-11-28] MEDS: Lactobacillus Acidophilus/Lactobacillus Sporogenes (Probiotic) Tab PO SCH (13:44)
[2024-11-28] MEDS: Amoxicillin/Clavulanate K 875-125 MG Tab PO SCH (19:37)
== END 2024-11-30 10:37 | DRG 280 ==
LOC: LB.ED 18:04 → UNDOADMIN 23:00 → LB.MS 23:00
PROVIDERS: ADMIT Surgery; ATTEND Family Medicine
PROC: 0T9B70Z Drainage of Bladder with Drainage Device, Via Natural or Artificial Opening (ICD-10-PCS; principal; 2024-11-24)
PROC: 0DH673Z Insertion of Infusion Device into Stomach, Via Natural or Artificial Opening (ICD-10-PCS; 2024-11-24)
PROC: 3E03329 Introduction of Other Anti-infective into Peripheral Vein, Percutaneous Approach (ICD-10-PCS; 2024-11-24)
DX: G40.909 Epilepsy, unspecified, not intractable, without status epilepticus (principal); I63.9 Cerebral infarction, unspecified; I21.4 Non-ST elevation (NSTEMI) myocardial infarction; J69.0 Pneumonitis due to inhalation of food and vomit; N17.9 Acute kidney failure, unspecified; J98.11 Atelectasis; Z66 Do not resuscitate; H91.90 Unspecified hearing loss, unspecified ear; F41.9 Anxiety disorder, unspecified; F32.A Depression, unspecified; I12.9 Hypertensive chronic kidney disease with stage 1 through stage 4 chronic kidney disease, or unspecified chronic kidney disease; H70.90 Unspecified mastoiditis, unspecified ear; R56.9 Unspecified convulsions; R33.9 Retention of urine, unspecified; J32.0 Chronic maxillary sinusitis; Z85.118 Personal history of other malignant neoplasm of bronchus and lung; Z79.899 Other long term (current) drug therapy; Z87.891 Personal history of nicotine dependence
CPT/HCPCS: 36415; 70450; 70496; 70498; 71045 ×2; 80048; 81001; 82947; 83735; 84484; 85027; 85379; 93005; 93010; 99285; A9270 ×2; J1920; J1953 ×3; J2060 ×5; J2250; J2270; J2405; J3360; J7030 ×2; 43752; 51702; 70553; 80053; 83605; 85025; 85610; 85730; 96361; 96365; 96374; 96375; 96376; 99223; 99232; 99233; 99238; J0360; J0696; J1644; J1650; J2470; J2543; J3480; J3490; J7120

== ENCOUNTER 2024-12-11 10:21 | Emergency (ER) | payer MEDICARE | END 2024-12-11 11:53 | disposition home or self-care (01) | LOC: LB.ED 10:21 | DX: I21.3 ST elevation (STEMI) myocardial infarction of unspecified site (principal); R94.31 Abnormal electrocardiogram [ECG] [EKG]; I10 Essential (primary) hypertension; Z79.899 Other long term (current) drug therapy; Z86.16 Personal history of COVID-19 | CPT/HCPCS: 93005; 99284 ==

== ENCOUNTER 2025-03-03 20:28 | Emergency (ER) | payer MEDICARE ==
[2025-03-03] MEDS: Lidocaine 1% with EPINEPHrine 1:100,000 20 ML MDV INJECT ONE (20:40)
== END 2025-03-03 21:08 ==
LOC: LB.ED 20:28
DX: S01.01XA Laceration without foreign body of scalp, initial encounter (principal); I10 Essential (primary) hypertension; Z86.16 Personal history of COVID-19; Z79.899 Other long term (current) drug therapy; W01.198A Fall on same level from slipping, tripping and stumbling with subsequent striking against other object, initial encounter; Y92.129 Unspecified place in nursing home as the place of occurrence of the external cause
CPT/HCPCS: 12001; 99282; 99283; J2004

== ENCOUNTER 2025-04-02 17:53 | Emergency (ER) | payer MEDICARE ==
[2025-04-02] MEDS ORDERED: Sodium Chloride 0.9% 10 ML Syringe FLUSH PRN (18:03)
[2025-04-02 18:32] LABS: MEAN PLATELET VOLUME 9.3 fL (6.0-10.0); PLATELET COUNT,PLT 204.0 K/uL (150-400); RED BLOOD CELL COUNT 3.55 M/uL (4.50-6.50); RED CELL DISTRIBUTION WIDTH 13.9 % (11.0-16.0); WHITE BLOOD CELL COUNT,WBC 5.6 K/uL (4.0-11.0)
[2025-04-02 18:46] LABS: APPEARANCE,URINE CLEAR (CLEAR); GLUCOSE,URINE NEGATIVE (NEGATIVE); OCCULT BLOOD,URINE TRACE-INTACT (NEGATIVE)
[2025-04-02 18:50] LABS: SQUAMOUS EPITHELIAL CELLS,UR NOT SEEN /HPF
[2025-04-02 18:55] LABS: BLOOD UREA NITROGEN,BUN 28 mg/dL (8-26); CARBON DIOXIDE,CO2 26.7 mmol/L (21.0-32.0); CHLORIDE,CL 107 mmol/L (98-107); CREATININE 1.63 mg/dL (0.70-1.30); EST CRCL DRUG DOSING (CG) 31.06 mL/min; ESTIMATED GFR 41 mL/min (>60); GLUCOSE RANDOM 180 mg/dL (74-100); PHOSPHORUS 4.2 mg/dL (2.5-4.9); POTASSIUM,K 5.2 mmol/L (3.5-5.1); SODIUM,NA 138 mmol/L (136-145); TROPONIN I HIGH SENSITIVITY 14.2 pg/ml (<=60.4)
[2025-04-02] MEDS: Ciprofloxacin in D5W 400 MG in Premix Bag 1 BAG IV ONE (19:07)
== END 2025-04-02 20:51 ==
LOC: LB.ED 17:53
DX: E86.0 Dehydration (principal); N39.0 Urinary tract infection, site not specified; I10 Essential (primary) hypertension; Z79.899 Other long term (current) drug therapy; Z86.16 Personal history of COVID-19
CPT/HCPCS: 36415; 80048; 81001; 82947; 83735; 84100; 84484; 85027; 86140; 93005; 96365; 99285-25; A9270-GY; J0744; J7030